=== PATIENT | female | born 2000 | race Two or more races ===

== ENCOUNTER 2023-12-23 22:45 | Emergency (ER) | payer SELFPAY ==
[2023-12-23 22:51] VITALS: BP 112/75; PULSE 79; RESP 20; TEMP 98.6; BMI 17.7
[2023-12-23 23:33] LABS: EPI CELLS 2 /uL (0-25.1); HYALINE CASTS 0 /uL (0-3.1); PH,URINE 5.5 (5.0-8.0); URINE APPEARANCE CLEAR; URINE BACTERIA 17 /uL (0-1359); URINE BILIRUBIN NEGATIVE (NEGATIVE); URINE COLOR YELLOW; URINE GLUCOSE (UA) NEGATIVE (NEGATIVE); URINE KETONE NEGATIVE (NEGATIVE); URINE LEUK ESTERASE 3+ (NEGATIVE); URINE NITRITE NEGATIVE (NEGATIVE); URINE PROTEIN NEGATIVE (NEGATIVE); URINE RBC 27 /uL (0-23.9); URINE UROBILINOGEN 0.2 mg/dL (0.2-1.0); URINE WBC 937 /uL (0-25.8)
[2023-12-23 23:42] LABS: HCG,QUALITATIVE URINE NEGATIVE
[2023-12-24] MEDS ORDERED: CEPHALEXIN MONOHYDRATE 500 MG CAPSULE (UD) ONE (00:01)
[2023-12-24] MEDS: CEPHALEXIN MONOHYDRATE 500 MG CAPSULE (UD) PO ONE (00:03)
[2023-12-24] MEDS ORDERED: FLUCONAZOLE 150 MG TABLET PO ONE (00:46)
[2023-12-24] MEDS: FLUCONAZOLE 150 MG TABLET PO ONE (00:47)
[2023-12-24] MEDS ORDERED: IBUPROFEN 400 MG TABLET (FP) PO ONE (02:02)
[2023-12-24] MEDS: IBUPROFEN 400 MG TABLET (FP) PO ONE (02:03)
== END 2023-12-24 02:44 | disposition home or self-care (01) ==
LOC: JER 22:45
DX: N39.0 Urinary tract infection, site not specified (principal); B37.31 Acute candidiasis of vulva and vagina; N83.202 Unspecified ovarian cyst, left side; R30.0 Dysuria; R10.30 Lower abdominal pain, unspecified
CPT/HCPCS: 36415; 76830-TC; 81003; 84703; 87086; 87186; 87491; 87591; 99284-25